=== PATIENT | female | born 1945 | race African-American/Black ===

== ENCOUNTER 2016-04-16 11:05 | Outpatient (CLI) | payer MEDICARE ==
[2016-04-16 11:36] LABS: Anion Gap 18 mmol/L (10-20); BUN (Urea Nitrogen) 19 mg/dL (9.8-20.1); Calc. Creatinine Clearance 0 mL/min (70-130); Carbon Dioxide 23 mmol/L (23-31); Chloride 105 mmol/L (98-107); Estimated GFR-MDRD 42
== END 2016-04-16 11:06 | disposition home or self-care (01) ==
LOC: NAV LAB 11:05
PROVIDERS: ATTEND Internal Medicine Nephrology
DX: N18.3 Chronic kidney disease, stage 3 (moderate) (principal)
CPT/HCPCS: 36415; 80048

== ENCOUNTER 2021-11-06 14:44 | Outpatient (CLI) | payer OTHER | END 2021-11-06 14:45 | disposition home or self-care (01) | LOC: NAV RAD 14:44 | PROVIDERS: ATTEND Family Medicine | DX: E78.2 Mixed hyperlipidemia (principal); M47.816 Spondylosis without myelopathy or radiculopathy, lumbar region | CPT/HCPCS: 72100 ==